=== PATIENT | female | born 1980 | race Caucasian/White ===

== ENCOUNTER 2017-01-21 13:15 | Emergency (ER) | payer MEDICAID ==
[2017-01-21 18:37] LABS: BASOPHILS 0.1 % (0-2); EOSINOPHILS 0.2 % (0-7); HEMATOCRIT 37.5 % (36.0-48.0); HEMOGLOBIN 12.4 g/dL (12-16); IMMATURE GRANULOCYTES 0.2 % (0-5); LYMPHOCYTES 11.6 % (15-50); MCH 30.1 pg (26.0-34.0); MCHC 33.1 g/dL (31.0-37.0); MONOCYTES 4.3 % (2-11); NEUTROPHILS 83.6 % (40-80); PLATELET COUNT 267 10x3/uL (130-400); RBC 4.12 10x6/uL (4.00-5.40); RDW 12.5 % (11.5-14.5); WBC 13.6 10x3/uL (4.8-10.8)
[2017-01-21 18:55] LABS: ALBUMIN 3.7 g/dL (3.4-5.0); ALKALINE PHOSPHATASE 76 U/L (46-116); ALT (SGPT) 17 U/L (10-68); BILIRUBIN - TOTAL 0.49 mg/dL (0.2-1.3); CALC OSMOLALITY 274 mosm/kg (275-300); CALCIUM 8.8 mg/dL (8.5-10.1); CARBON DIOXIDE 27.7 mmol/L (21.0-32.0); CHLORIDE - SERUM 102 mmol/L (98-107); CREATININE - SERUM 0.8 mg/dL (0.6-1.3); GLUCOSE 101 mg/dL (74-106); POTASSIUM - SERUM 3.5 mmol/L (3.5-5.1); PROTEIN - SERUM 7.7 g/dL (6.4-8.2); SODIUM 138 mmol/L (136-145); UREA NITROGEN 10 mg/dL (7-18); eGFR NON AFRICAN AMERICAN 87 mL/min (90-120)
[2017-01-21 18:59] LABS: HCG SERUM NEGATIVE (NEGATIVE)
[2017-01-21 19:33] LABS: APPEARANCE CLEAR (CLEAR); BILIRUBIN NEGATIVE (NEGATIVE); COLOR YELLOW (YELLOW); GLUCOSE NEGATIVE (NEGATIVE); KETONE NEGATIVE (NEGATIVE); LEUKOCYTE ESTERASE NEGATIVE (NEGATIVE); NITRITE NEGATIVE (NEGATIVE); PROTEIN NEGATIVE (NEGATIVE); UROBILINOGEN NORMAL (NORMAL)
== END 2017-01-21 22:10 | disposition home or self-care (01) ==
LOC: D.ER 13:15
PROVIDERS: Physician Assistant Medical
DX: R10.2 Pelvic and perineal pain (principal)

== ENCOUNTER 2019-01-01 16:37 | Emergency (ER) | payer MEDICAID ==
[~2019-01-01] VITALS: Ht 162.6 cm; Wt 81.8 kg
[2019-01-01 16:40] VITALS: Ht 162.6 cm; Wt 81.8 kg
[2019-01-01 17:23] LABS: BASOPHILS 0.1 % (0-2); EOSINOPHILS 0.7 % (0-7); HEMATOCRIT 34.8 % (36.0-48.0); HEMOGLOBIN 11.8 g/dL (12-16); IMMATURE GRANULOCYTES 0.1 % (0-5); LYMPHOCYTES 8.7 % (15-50); MCH 30.5 pg (26.0-34.0); MCHC 33.9 g/dL (31.0-37.0); MCV 89.9 fL (80.0-100.0); MONOCYTES 4.7 % (2-11); NEUTROPHILS 85.7 % (40-80); PLATELET COUNT 262 10x3/uL (130-400); RBC 3.87 10x6/uL (4.00-5.40); RDW 14.1 % (11.5-14.5); WBC 13.6 10x3/uL (4.8-10.8)
[2019-01-01 17:29] LABS: APPEARANCE CLEAR (CLEAR); BILIRUBIN NEGATIVE (NEGATIVE); COLOR YELLOW (YELLOW); GLUCOSE NEGATIVE (NEGATIVE); KETONE NEGATIVE (NEGATIVE); NITRITE NEGATIVE (NEGATIVE); PROTEIN NEGATIVE (NEGATIVE); SPECIFIC GRAVITY 1.015 (1.005-1.020); UROBILINOGEN NORMAL (NORMAL)
[2019-01-01 17:36] LABS: ALBUMIN 3.4 g/dL (3.4-5.0); ALKALINE PHOSPHATASE 75 U/L (46-116); ALT (SGPT) 17 U/L (10-68); BILIRUBIN - TOTAL 0.29 mg/dL (0.2-1.3); CALC OSMOLALITY 278 mosm/kg (275-300); CALCIUM 8.9 mg/dL (8.5-10.1); CARBON DIOXIDE 24.9 mmol/L (21.0-32.0); CHLORIDE - SERUM 105 mmol/L (98-107); CREATININE - SERUM 0.9 mg/dL (0.6-1.3); GLUCOSE 107 mg/dL (74-106); POTASSIUM - SERUM 3.6 mmol/L (3.5-5.1); PROTEIN - SERUM 7.2 g/dL (6.4-8.2); SODIUM 140 mmol/L (136-145); UREA NITROGEN 12 mg/dL (7-18); eGFR NON AFRICAN AMERICAN 75 mL/min (90-120)
[2019-01-01 17:39] LABS: BACTERIA FEW /hpf (NONE SEEN); EPITHELIAL CELLS 0-5 /hpf (0-5); WHITE CELLS - URINE OCC /hpf (0-5)
[2019-01-01 17:40] LABS: GRANULAR CAST RARE /lpf (NONE SEEN)
[2019-01-01 17:43] LABS: HCG - QUANTITATIVE (MATERNAL) 0 mIU/mL
[2019-01-01 19:40] VITALS: BP 121/74
== END 2019-01-01 19:40 | disposition home or self-care (01) ==
LOC: D.ER 16:37
PROVIDERS: Family Medicine
DX: N94.6 Dysmenorrhea, unspecified (principal); R42 Dizziness and giddiness

== ENCOUNTER 2019-03-09 06:45 | Day surgery (SDC) | payer MEDICAID ==
[2019-03-06 11:18] LABS: BASOPHILS 0.3 % (0-2); EOSINOPHILS 3.3 % (0-7); IMMATURE GRANULOCYTES 0.1 % (0-5); LYMPHOCYTES 25.5 % (15-50); MCH 30.4 pg (26.0-34.0); MCHC 33.3 g/dL (31.0-37.0); MCV 91.1 fL (80.0-100.0); MEAN PLATELET VOLUME 9.8 fL (7.4-10.4); MONOCYTES 7.1 % (2-11); NEUTROPHILS 63.7 % (40-80); PLATELET COUNT 260 10x3/uL (130-400); RBC 3.95 10x6/uL (4.00-5.40); RDW 13.4 % (11.5-14.5); WBC 7.6 10x3/uL (4.8-10.8)
[~2019-03-09] VITALS: Ht 162.6 cm; Wt 86.2 kg
[2019-03-09 08:47] VITALS: BP 111/62; Ht 162.6 cm; Wt 86.2 kg
[2019-03-09 09:20] LABS: HCG URINE NEGATIVE (NEGATIVE)
--- NOTE | 2019-03-09 12:21 | NUR ---
1220 PILLOW PROVIDED. MULTIPLE FAMILY MEMBERS AT SIDE.
--- NOTE | 2019-03-10 07:42 | OP ---
PATIENT NAME: CESAR JOYNER MEDICAL RECORD: [id number] :84 LOCATION:D[facility] ADMISSION DATE: SURGEON: MATTHEW JAMES MD DATE OF OPERATION: 03/09/2019 PREOPERATIVE DIAGNOSES: 1. Dysfunctional uterine bleeding. 2. Pelvic pain. 3. Pelvic mass. POSTOPERATIVE DIAGNOSES: 1. Dysfunctional uterine bleeding. 2. Pelvic pain. 3. Pelvic mass. 4. Severe pelvic adhesions. 5. Endometrioma. 6. Active endometriosis. 7. Left hydrosalpinx. PROCEDURES PERFORMED: 1. Diagnostic laparoscopy. 2. Lysis of adhesions. 3. Left salpingectomy. 4. Right cystectomy. 5. Dilation and curettage. SURGEON: Matthew James MD CONTAINER FINISHER: Darwin Turner. ANESTHESIOLOGIST: Dr. Holman. ANESTHETIC: General. FINDINGS: At the time of laparoscopy, both ovaries were densely adhesed to the cul-de-sac and posterior aspect of the uterus. There was approximately 4-5 cm endometrioma identified on the right ovary. The left tube was filled with fluid. Right tube was unremarkable. Uterus has active endometriosis on the posterior and right lateral [place]. Active endometriosis was identified underneath the adhesions that were taken down in the right ovarian fossa. At the time of D&C, the cervix was noted to be stenotic and scant tissue returned with curettage. The vaginal vault was unremarkable. SPECIMENS REMOVED: 1. Left tube. 2. Portions of cyst wall. 3. Endometrial curettings. SPECIMEN DISPOSITION: All specimens to pathology. ESTIMATED BLOOD LOSS: Less than or equal to 75 cc. FLUIDS: 1600 cc lactated Ringer's. URINE OUTPUT: Quantity sufficient cath prior to this procedure. OPERATIVE REPORT [id number] CESAR JOYNER COMPLICATIONS: None. DRAINS: None. INDICATIONS: The patient is a 38-year-old female with a longstanding history of dysfunctional uterine bleeding and pelvic pain. Pelvic mass identified on ultrasound and the patient was consented for removal of pelvic mass, diagnostic laparoscopy, D&C, and any indicated procedure. DESCRIPTION OF THE PROCEDURE: After informed consent was assured, the patient was taken to the operating room where anesthetic was obtained. The patient was now placed in [facility]. After prepping and draping, incision was made at the umbilicus to accommodate a 5-mm trocar, which was inserted without difficulty. Pneumoperitoneum was now developed. Right and left lower quadrant ports were placed. With the patient in steep Trendelenburg, the bowel was swept free of the pelvis. Immediately dense adhesions were encountered of the right and left ovaries to the ovarian fossa. The left tube was noted to be fluid filled. The left tube was elevated and using a Thunderbeat coagulation cutter, it was removed from its attachments. Attention was directed to the left where the adhesions of the ovaries were taken down from the ovarian fossa. The cyst was now entered. Cyst wall removed. The pneumoperitoneum was released. The attention was directed below where the legs were positioned. The cervix was grasped and dilated to accommodate a #2 curette, which was passed into the uterus and withdrawn with cry. Tissues removed. A single tooth tenaculum was used to hold the cervix during the procedure was removed. Due to concerns with the cervical stenosis, a perforation pneumoperitoneum was reestablished after inserting a primary port and the posterior aspect of the uterus was found to be intact without injury. Sponge, lap, needle counts were correct times 2 as the patient is awakened. TRANSINT:[id number] Voice Confirmation ID: [id number] DOCUMENT ID: [id number] MATTHEW JAMES MD at 0742 CC: [id number] DICTATION DATE: 03/09/19 1110 GARMENT ALTERATION EXAMINER: 03/09/19 1154 [facility] 03/09/19 [facility] [address] [place] [address]
== END 2019-03-09 15:10 | disposition home or self-care (01) ==
LOC: D.OPS 06:45 → D.PAN 09:00 → D.OPS 09:00 → D.PAN 09:30 → D.OPS 09:30
PROVIDERS: ATTEND Obstetrics & Gynecology
DX: N93.8 Other specified abnormal uterine and vaginal bleeding (principal); R10.2 Pelvic and perineal pain; R19.00 Intra-abdominal and pelvic swelling, mass and lump, unspecified site; N80.9 Endometriosis, unspecified; N70.11 Chronic salpingitis